=== PATIENT | male | born 1955 | race African-American/Black ===

== ENCOUNTER → 2023-09-16 13:23 | Outpatient (REF) | payer MEDICARE, SELFPAY | LOC: RCS 13:23 | PROVIDERS: ATTENDING PHYSICIAN Internal Medicine Interventional Cardiology; FAMILY PHYSICIAN Family Medicine; REFERRING PHYSICIAN Family Medicine | DX: R07.89 Other chest pain (principal) | CPT/HCPCS: 93017; 93350 ==